=== PATIENT | male | born 1945 | race Asian ===

== ENCOUNTER 2025-01-22 09:52 | Outpatient (CLI) | payer MEDICARE, MEDICAID | END 2025-01-22 23:59 | disposition home or self-care (01) | LOC: MRI02 09:52 | PROVIDERS: ATTEND Family Medicine Sports Medicine | DX: M51.16 Intervertebral disc disorders with radiculopathy, lumbar region (principal); Z72.0 Tobacco use; Z68.26 Body mass index [BMI] 26.0-26.9, adult; M54.50 Low back pain, unspecified; M77.9 Enthesopathy, unspecified; M47.26 Other spondylosis with radiculopathy, lumbar region; M48.07 Spinal stenosis, lumbosacral region | CPT/HCPCS: 72148 ==